=== PATIENT | female | born 1995 | race Caucasian/White ===

== ENCOUNTER → 2018-01-06 | Outpatient (CLI) | payer OTHER | LOC: FIMAGING 13:39 | PROVIDERS: ATTEND Obstetrics & Gynecology | DX: N91.1 Secondary amenorrhea (principal); N83.8 Other noninflammatory disorders of ovary, fallopian tube and broad ligament ==

== ENCOUNTER 2018-04-11 19:55 | Emergency (ER) | payer OTHER ==
--- NOTE | 2018-04-11 21:15 | EDPHY ---
H & P Stated Complaint: chest pain, SOb after hiking a 14er today Time Seen by Provider: 04/11/18 20:55 HPI/ROS: CHIEF COMPLAINT: Palpitations, shortness of breath, chest tightness HISTORY OF PRESENT ILLNESS: The patient is a 23-year-old female with no significant past medical history comes to the emergency department complaining of palpitations shortness breath a chest tightness that developed while she was climbing a 14 or today. When she got back to town she felt like her symptoms persisted longer than she would expect. They have now resolved. No fever. She states that she has had a cold for the last 2 weeks but it is essentially resolved last few days. No fevers. No cough. No history of cardiac disease. No swelling. No leg pain. She does take control pills. Severity: Moderate Modifying factors: Time has improved symptoms REVIEW OF SYSTEMS: Constitutional: denies: chills, fever, recent illness, recent injury EENTM: denies: blurred vision, double vision, nose congestion Respiratory: See HPI Cardiac: denies: chest pain, irregular heart rate, lightheadedness, palpitations Gastrointestinal/Abdominal: denies: abdominal pain, diarrhea, nausea, vomiting, blood streaked stools Genitourinary: denies: dysuria, frequency, hematuria, pain Musculoskeletal: denies: joint pain, muscle pain Skin: denies: lesions, rash, jaundice, bruising Neurological: denies: headache, numbness, paresthesia, tingling, dizziness, weakness Hematologic/Lymphatic: denies: blood clots, easy bleeding, easy bruising Immunologic/allergic: denies: HIV/AIDS, transplant 10 systems reviewed and negative except as noted EXAM: GENERAL: Well-appearing, well-nourished and in no acute distress. HEAD: Atraumatic, normocephalic. EYES: Pupils equal round and reactive to light, extraocular movements intact, sclera anicteric, conjunctiva are normal. ENT: TMs normal, nares patent, oropharynx clear without exudates. Moist mucous membranes. NECK: Normal range of motion, supple without lymphadenopathy or JVD. LUNGS: Breath sounds clear to auscultation bilaterally and equal. No wheezes rales or rhonchi. HEART: Regular rate and rhythm without murmurs, rubs or gallops. ABDOMEN: Soft, nontender, normoactive bowel sounds. No guarding, no rebound. No masses appreciated. BACK: No CVA tenderness, no spinal tenderness, step-offs or deformities EXTREMITIES: Normal range of motion, no pitting or edema. No clubbing or cyanosis. NEUROLOGICAL: Cranial nerves II through XII grossly intact. Normal speech, normal gait. 5/5 strength, normal movement in all extremities, normal sensation , normal reflexes PSYCH: Normal mood, normal affect. SKIN: Warm, dry, normal turgor, no visible rashes or lesions. Source: Patient Exam Limitations: No limitations - Personal History LMP (Females 10-55): 8-14 Days Ago Current Tetanus Diphtheria and Acellular Pertussis (TDAP): Yes - Medical/Surgical History Hx Asthma: No Hx Chronic Respiratory Disease: No Hx Diabetes: No Hx Cardiac Disease: No Hx Renal Disease: No Hx Cirrhosis: No Hx Alcoholism: No Hx HIV/AIDS: No Hx Splenectomy or Spleen Trauma: No - Family History Significant Family History: No pertinent family hx - Social History Smoking Status: Never smoked Alcohol Use: Sober Drug Use: None Constitutional: Initial Vital Signs Temperature (C) 37.2 C 04/11/18 20:07 Heart Rate 100 04/11/18 20:07 Respiratory Rate 20 04/11/18 20:07 Blood Pressure 140/90 H 04/11/18 20:07 O2 Sat (%) 97 04/11/18 20:07 O2 Delivery Mode Room Air Allergies/Adverse Reactions: No Known Allergies Allergy (Unverified 04/11/18 20:05) Home Medications: Medication Instructions Recorded Bcp 04/11/18 Medical Decision Making - Diagnostics EKG Interpretation: An EKG obtained and was read and documented in trace view. Please see trace view for full reading and report. Sinus rhythm, no acute ischemic changes ED Course/Re-evaluation: Patient is currently asymptomatic. We discussed risk of PE and workup including a D-dimer and possibly CT scan. At this point she is feeling completely better and is not sure she wants to proceed with these tests. Her EKG is reassuring. No sign of right heart strain. She would like to call and speak with her mom before we proceed. 9:30 p.m. the patient and mom decided to go ahead and obtain the blood tests. Patient refused chest x-ray. Lab work is reassuring. She is eager to go home. We discussed the fact that we cannot rule out small pneumothorax or pneumonia although I did not hear anything abnormal on her lung exam. She understands and declines further treatment. Differential Diagnosis: Partial list of the Differential diagnosis considered include but were not limited to; pleurisy, PE and although unlikely based on the history and physical exam, I also considered among pneumonia, dissection, pneumothorax, dissection. I discussed these differential diagnoses and the plan with the [ patient] as well as the usual and expected course. The [patient understands] that the diagnosis is provisional and that in medicine we are not always correct and that further workup is often warranted. Usual and customary warnings were given. All of the [patient's] questions were answered. The [ patient was] instructed to return to the emergency department should the symptoms at all worsen or return, otherwise to followup with the physician as we discussed. - Data Points Laboratory Results: Laboratory Results 04/11/18 20:30 04/11/18 20:30 Medications Given: Discontinued Medications Chlordiazepoxide (Librium 25 Mg [facility]#6) [facility] Stop: 04/11/18 22:39 Last Admin: 04/11/18 22:49 Dose: Not Given Point of Care Test Results: Chemistry 04/11/18 21:54 POC Troponin I 0.00 ng/mL ng/mL (0.00-0.08) Departure - Departure Disposition: Home, Routine, Self-Care Clinical Impression: Pleurisy Chest pain Qualifiers: Chest pain type: chest pain on breathing Qualified Code(s): R07.1 - Chest pain on breathing; R07.81 - Pleurodynia Condition: Fair Instructions: Pleurisy (DC) Referrals: NONE *PRIMARY CARE P,. [Primary Care Provider] - As per Instructions Cheryl Andrew MD [[facility] Primary Care Provider] - As per Instructions
--- NOTE | 2018-04-11 21:17 | CPEKG ---
Test Reason : OPEN Blood Pressure : / mmHG Vent. Rate : 097 BPM Atrial Rate : 097 BPM P-R Int : 148 ms QRS Dur : 086 ms QT Int : 358 ms P-R-T Axes : 059 069 038 degrees QTc Int : 455 ms Sinus rhythm Confirmed by Aníbal Hamilton ([id number]) on 04/11/2018 9:17:06 PM Referred By: Confirmed By:Aníbal Hamilton
[2018-04-11 21:43] LABS: PLATELET COUNT 42 10^3/uL (150-400)
[2018-04-11 21:47] LABS: PROTIME(PATIENT) 13.4 SEC (12.0-15.0)
[2018-04-11] MEDS ORDERED: CHLORDIAZEPOXIDE 25MG PREPK#6 BTL TAKEHOME ONE (22:38)
[2018-04-11 22:49] VITALS: BP 122/68
== END 2018-04-11 22:52 | disposition home or self-care (01) ==
DX: R07.1 Chest pain on breathing (principal); R07.81 Pleurodynia
CPT/HCPCS: 84484-PO